=== PATIENT | male | born 1950 | race Caucasian/White ===

== ENCOUNTER 2024-10-05 18:03 | Emergency (ER) | payer MEDICARE, SELFPAY ==
[2024-10-05 18:21] LABS: #Basophils 0.04 10x3/uL (0.0-0.2); #Eosinophils 0.33 10x3/uL (0.0-0.5); #Monocytes 0.60 10x3/uL (0.0-1.1); #Neutrophils 4.59 10x3/uL (1.5-8.4); %Basophils 0.4 % (0.0-2.0); %Eosinophils 2.9 % (0.0-6.0); %Lymphocytes 50.9 % (18.0-47.0); %Monocytes 5.3 % (0.0-10.0); %Neutrophils 40.3 % (40.0-75.0); Hematocrit 47.0 % (38.8-50.0); Hemoglobin 15.5 g/dL (13.5-17.5); Mean Corpuscular Hemoglobin 27.9 pg (27.0-33.0); Mean Corpuscular Volume 84.5 fL (81.2-95.1); Platelet Count 314 10x3/uL (150-450); Red Blood Cell (RBC) Count 5.56 10x6/uL (4.32-5.72); White Blood Cell (WBC) Count 11.37 10x3/uL (3.5-10.5)
[2024-10-05 18:36] LABS: ALT (SGPT) 28 U/L (Less than 45); AST (SGOT) 35 U/L (11-34); Albumin 4.8 g/dL (3.1-4.5); Alkaline Phosphatase 76 U/L (40-110); Anion Gap 24 mmol/L (10-20); BUN (Urea Nitrogen) 18 mg/dL (8.4-25.7); Bilirubin, Total 0.5 mg/dL (0.3-1.2); CK (CPK) 93 U/L (30-200); Calc. Creatinine Clearance 0 mL/min (70-130); Calcium 10.1 mg/dL (7.8-10.44); Carbon Dioxide 15 mmol/L (23-31); Chloride 106 mmol/L (98-107); Globulin 3.8 g/dL (2.4-3.5); Glucose 133 mg/dL (83-110); Potassium 3.2 mmol/L (3.5-5.1); Sodium 142 mmol/L (136-145)
[2024-10-05] MEDS ORDERED: Ondansetron PF 4 MG/2 ML Vial ONE (18:43)
[2024-10-05] MEDS ORDERED: Glycopyrrolate 0.2 MG/ML 5 ML SYRINGE SLOW IVP SCH (18:45)
[2024-10-05] MEDS ORDERED: Etomidate 40 MG (20 mL) VIAL ONE (19:00)
[2024-10-05] MEDS ORDERED: Rocuronium Bromide 10 MG/ML (10ML VIAL) ONE (19:00)
[2024-10-05 19:03] LABS: INR-International Normal Ratio 1.0; PTT 23.4 sec (22.0-33.0); Prothrombin Time 10.6 sec (9.5-12.1)
== END 2024-10-05 19:50 | disposition short-term general hospital (02) ==
LOC: CSHERS 18:03
DX: T63.091A Toxic effect of venom of other snake, accidental (unintentional), initial encounter (principal); J96.90 Respiratory failure, unspecified, unspecified whether with hypoxia or hypercapnia
CPT/HCPCS: 31500; 71045; 80053; 82550; 85025; 85610; 85730; 93005; 96374; 96375; 99285; J2405; J2704